=== PATIENT | female | born 1945 | race Caucasian/White ===

== ENCOUNTER 2017-10-30 09:49 | Inpatient (IN) ==
[2017-10-30] MEDS ORDERED: ONDANSETRON 4 MG/2 ML VIAL IV STA (10:39)
[2017-10-30] MEDS ORDERED: PANTOPRAZOLE 40 MG VIAL IV STA (10:39)
[2017-10-30] MEDS ORDERED: SODIUM CHLORIDE 0.9% 1,000 ML IV STA (10:39)
[2017-10-30 10:49] LABS: Basophils % 0.2 % (0.0-0.8); Eosinophils # 0.1 10*3/uL (0.0-0.87); Eosinophils % 0.8 % (0.00-10.9); Hematocrit 29.7 VOL% (35.7-47.0); Hemoglobin 9.4 GM/DL (12.0-16.0); Immature Granulocytes % 0.7 %; Immature Granulocytes Absolute 0.06 #; Lymphocytes # 0.9 10*3/uL (1.4-4.0); Lymphocytes % 10.1 % (21.3-54.2); Mean Corpuscular HGB Conc 31.6 GM/DL (32-36); Mean Corpuscular Hemoglobin 29 PG (27-34); Monocytes # 0.9 10*3/uL (0.11-0.8); Monocytes % 9.6 % (1.7-12.7); Neutrophils # 7.3 10*3/uL (1.4-7.4); Neutrophils % 78.6 % (38.7-73.9); Platelet Count 482 T/CUMM (130-400); White Blood Count 9.2 T/CUMM (4-12)
[2017-10-30 10:53] LABS: PT Patient Result 10.4 SECS
[2017-10-30] MEDS ORDERED: PANTOPRAZOLE 40 MG VIAL IV ONE (10:54)
[2017-10-30] MEDS ORDERED: ONDANSETRON 4 MG/2 ML VIAL ONE (10:54)
[2017-10-30 11:06] LABS: Alanine Aminotransferase 14 U/L (13-56); Albumin 2.3 G/DL (3.4-5.0); Alkaline Phosphatase 106 U/L (45-117); Aspartate Amino Transferase 23 U/L (0-37); Bilirubin,Total < 0.39 MG/DL (0.2-1.0); Blood Urea Nitrogen 12 MG/DL (7-18); Calcium 8.9 MG/DL (8.5-10.1); Glucose 101 MG/DL (74-106); Osmolality,Calculated 274.7 MOS/KG (273-304); Potassium 3.2 MMOL/L (3.5-5.1); Sodium 138 MMOL/L (136-145); Troponin I Only 0.148 NG/ML (0.00-0.045)
[2017-10-30 11:13] LABS: Band Neutrophils 4 % (0-10); Giant Platelets Few; Hypochromasia 1+; Lymphocytes 6 % (20-55); Ovalocytes Slight; Platelet Estimate Adequate; Segmented Neutrophils 85 % (50-85); Total Cells Counted 100
[2017-10-30] MEDS ORDERED: POTASSIUM CHLORIDE 20 MEQ TABLET PO STA (11:41)
[2017-10-30 11:52] LABS: Apearance,Urine CLEAR (Clear); Bilirubin,Urine Negative (Negative); Blood, Urine Small mg/dL (Negative); Glucose,Urine (UA) Negative (Negative); Ketones,Urine Negative (Negative); Nitrite,Urine Negative (Negative); Protein,Urine Negative; RBC,Urine <1 /HPF (0-4); Squamous Epithelial Cell,Urine Occasional /HPF (0-10); Urine Color Straw (Yellow); Urine Specific Gravity 1.002 (1.001-1.035); Urine Urobilinogen < 2.0 EU/DL (0.2-1.0); WBC,Urine <1 /HPF (0-6)
[2017-10-30] MEDS ORDERED: ONDANSETRON 4 MG/2 ML VIAL IV PRN (12:27)
[2017-10-30] MEDS ORDERED: POTASSIUM CHLORIDE 20 MEQ TABLET PO ONE (13:03)
[2017-10-30] MEDS: SODIUM CHLORIDE 0.9% 1,000 ML IV SCH (16:43)
[2017-10-30] MEDS: LEVOFLOXACIN INJ 750 MG in PREMIX 1 EACH IV SCH (16:45)
[2017-10-30 16:51] LABS: Troponin I Only 0.143 NG/ML (0.00-0.045)
[2017-10-30] MEDS ORDERED: POLYETHYLENE GLYCOL POWDER 255 GM BOTTLE PO ONE (19:04)
[2017-10-30] MEDS: HYDROCORTISONE 25 MG SUPP RECTAL SCH (22:15)
[2017-10-31] MEDS: SODIUM CHLORIDE 0.9% 1,000 ML IV SCH ×2 (04:08→15:15)
[2017-10-31] MEDS ORDERED: MAGNESIUM CITRATE 300 ML BOTTLE PO ONE (06:00)
[2017-10-31 08:11] LABS: Basophils % 0.4 % (0.0-0.8); Eosinophils % 0.4 % (0.00-10.9); Hematocrit 30.7 VOL% (35.7-47.0); Hemoglobin 9.5 GM/DL (12.0-16.0); Immature Granulocytes % 0.7 %; Immature Granulocytes Absolute 0.05 #; Lymphocytes # 0.9 10*3/uL (1.4-4.0); Lymphocytes % 11.4 % (21.3-54.2); Mean Corpuscular HGB Conc 30.9 GM/DL (32-36); Mean Corpuscular Hemoglobin 29 PG (27-34); Mean Platelet Volume 9.4 FL (9.6-12.0); Monocytes # 0.9 10*3/uL (0.11-0.8); Monocytes % 12.1 % (1.7-12.7); Neutrophils # 5.6 10*3/uL (1.4-7.4); Platelet Count 516 T/CUMM (130-400); Red Cell Distribution Width 15.3 % (9.3-17.3); White Blood Count 7.4 T/CUMM (4-12)
[2017-10-31 08:31] LABS: PT Patient Result 10.4 SECS
[2017-10-31 08:33] LABS: Band Neutrophils 1 % (0-10); Lymphocytes 12 % (20-55); Segmented Neutrophils 70 % (50-85); Total Cells Counted 100
[2017-10-31 08:34] LABS: Giant Platelets Few; Hypochromasia 1+; Platelet Estimate Increased
[2017-10-31 08:47] LABS: Albumin 2.4 G/DL (3.4-5.0); Bilirubin,Total 0.4 MG/DL (0.2-1.0); Calcium 9.3 MG/DL (8.5-10.1); Osmolality,Calculated 277.4 MOS/KG (273-304); Potassium 4.2 MMOL/L (3.5-5.1); Total Protein 7.5 G/DL (6.4-8.3)
[2017-10-31] MEDS: HYDROCORTISONE 25 MG SUPP RECTAL SCH ×2 (09:31→21:59)
[2017-10-31] MEDS: PANTOPRAZOLE 40 MG VIAL IV SCH (09:32)
[2017-10-31] MEDS ORDERED: PROPOFOL 200 MG/20 ML VIAL IV ONE (12:54)
[2017-10-31] MEDS ORDERED: LIDOCAINE 2% 5 ML VIAL ONE (12:54)
[2017-11-01] MEDS ORDERED: SIMETHICONE DROPS 40 MG/0.6 ML 30 ML BOTTLE PO PRN (01:20)
[2017-11-01] MEDS ORDERED: ASPIRIN CHEW 81 MG TABLET PO ONE (02:10)
[2017-11-01] MEDS ORDERED: ASPIRIN 325 MG TABLET ONE (02:12)
[2017-11-01] MEDS: MORPHINE 2 MG/1 ML SYRINGE IV PRN ×2 (02:15→05:19)
[2017-11-01] MEDS: NITROGLYCERIN SL 0.4 MG TABLET SL PRN ×2 (02:16→02:25)
[2017-11-01 02:36] LABS: PT Patient Result 10.6 SECS
[2017-11-01 02:46] LABS: Basophils % 0.3 % (0.0-0.8); Eosinophils % 0.1 % (0.00-10.9); Hemoglobin 9.1 GM/DL (12.0-16.0); Immature Granulocytes % 0.8 %; Immature Granulocytes Absolute 0.09 #; Lymphocytes # 0.5 10*3/uL (1.4-4.0); Lymphocytes % 4.4 % (21.3-54.2); Mean Corpuscular HGB Conc 32.5 GM/DL (32-36); Mean Corpuscular Hemoglobin 29 PG (27-34); Mean Corpuscular Volume 90.6 FL (87-102); Mean Platelet Volume 9.9 FL (9.6-12.0); Monocytes # 0.8 10*3/uL (0.11-0.8); Monocytes % 7.4 % (1.7-12.7); Neutrophils # 9.5 10*3/uL (1.4-7.4); Platelet Count 494 T/CUMM (130-400); Red Blood Count 3.09 MC/CUMM (3.8-5.5); Red Cell Distribution Width 15.8 % (9.3-17.3); White Blood Count 10.9 T/CUMM (4-12)
[2017-11-01] MEDS ORDERED: HEPARIN/NACL 0.9% 2 UNITS/ML 1,000 ML IV ONE (02:47)
[2017-11-01] MEDS ORDERED: LIDOCAINE 1% 20 ML VIAL ONE (02:47)
[2017-11-01 02:50] LABS: Calcium 7.2 MG/DL (8.5-10.1); Osmolality,Calculated 287.7 MOS/KG (273-304)
[2017-11-01] MEDS ORDERED: MIDAZOLAM 2 MG/2 ML VIAL ONE (02:50)
[2017-11-01] MEDS ORDERED: fentaNYL 100 MCG/2 ML VIAL ONE (02:50)
[2017-11-01 02:54] LABS: Osmolality,Calculated 285.8 MOS/KG (273-304)
[2017-11-01 02:57] LABS: Troponin I Only 0.289 NG/ML (0.00-0.045)
[2017-11-01] MEDS ORDERED: BIVALIRUDIN 250 MG VIAL IV ONE (03:00)
[2017-11-01] MEDS ORDERED: TICAGRELOR 90 MG TABLET ONE (03:38)
[2017-11-01 04:02] LABS: Band Neutrophils 17 % (0-10); Segmented Neutrophils 81 % (50-85); Total Cells Counted 100
[2017-11-01 04:04] LABS: Anisocytosis 1+; Hypochromasia 1+; Platelet Estimate Normal
[2017-11-01] MEDS ORDERED: ACETAMINOPHEN 325 MG TABLET PO PRN (04:30)
[2017-11-01] MEDS ORDERED: POTASSIUM CHLORIDE 20 MEQ TABLET PO ONE ×4 (08:02→12:04)
[2017-11-01] MEDS: FUROSEMIDE 20 MG/2 ML VIAL IV SCH ×2 (08:53→16:22)
[2017-11-01] MEDS: ASPIRIN EC 81 MG TABLET PO SCH (08:54)
[2017-11-01] MEDS: CARVEDILOL 3.125 MG TABLET PO SCH ×2 (08:54→20:17)
[2017-11-01] MEDS: TICAGRELOR 90 MG TABLET PO SCH ×2 (08:54→20:16)
[2017-11-01] MEDS: PANTOPRAZOLE 40 MG VIAL IV SCH (08:55)
[2017-11-01] MEDS: PANTOPRAZOLE 40 MG TABLET PO SCH (08:56)
[2017-11-01] MEDS: POTASSIUM CHLORIDE 20 MEQ TABLET PO SCH ×2 (08:58→20:17)
[2017-11-01] MEDS ORDERED: amLODIPine 10 MG TABLET PO SCH (09:00)
[2017-11-01] MEDS ORDERED: POTASSIUM CHLORIDE 10 MEQ TABLET PO SCH (09:00)
[2017-11-01] MEDS: MAGNESIUM OXIDE 400 MG TABLET PO SCH ×2 (09:05→20:17)
[2017-11-01] MEDS: HYDROCORTISONE 25 MG SUPP RECTAL SCH ×2 (09:45→20:16)
[2017-11-01] MEDS: LEVOFLOXACIN INJ 750 MG in PREMIX 1 EACH IV SCH (16:22)
[2017-11-01] MEDS ORDERED: FLUTICASONE/SALMETEROL 500-50 DISKUS 14 DOSE INH ONE (16:28)
[2017-11-01] MEDS: FLUTICASONE/SALMETEROL 500-50 DISKUS 14 DOSE INH SCH ×2 (17:26→20:16)
[2017-11-01] MEDS: SODIUM CHLORIDE 0.9% 1,000 ML IV SCH (19:46)
[2017-11-01] MEDS ORDERED: ATORVASTATIN 40 MG TABLET PO SCH (21:00)
[2017-11-02] MEDS ORDERED: SODIUM CHLORIDE 0.9% 250 ML IV ONE (00:13)
[2017-11-02 05:48] LABS: Basophils % 0.2 % (0.0-0.8); Hematocrit 26.5 VOL% (35.7-47.0); Hemoglobin 8.7 GM/DL (12.0-16.0); Immature Granulocytes % 0.9 %; Immature Granulocytes Absolute 0.11 #; Lymphocytes # 0.7 10*3/uL (1.4-4.0); Lymphocytes % 5.8 % (21.3-54.2); Mean Corpuscular HGB Conc 32.8 GM/DL (32-36); Mean Corpuscular Hemoglobin 29 PG (27-34); Mean Corpuscular Volume 89.2 FL (87-102); Mean Platelet Volume 9.9 FL (9.6-12.0); Monocytes # 0.9 10*3/uL (0.11-0.8); Monocytes % 6.9 % (1.7-12.7); Neutrophils # 10.7 10*3/uL (1.4-7.4); Neutrophils % 86.2 % (38.7-73.9); Platelet Count 445 T/CUMM (130-400); Red Blood Count 2.97 MC/CUMM (3.8-5.5); Red Cell Distribution Width 15.5 % (9.3-17.3); White Blood Count 12.4 T/CUMM (4-12)
[2017-11-02 06:04] LABS: INR 1.1; PT Patient Result 11.4 SECS
[2017-11-02 06:18] LABS: Band Neutrophils 9 % (0-10); Lymphocytes 13 % (20-55); Platelet Estimate Normal; Segmented Neutrophils 74 % (50-85); Total Cells Counted 100
[2017-11-02 06:27] LABS: Calcium 7.9 MG/DL (8.5-10.1); Potassium 4.1 MMOL/L (3.5-5.1)
[2017-11-02] MEDS: FLUTICASONE/SALMETEROL 500-50 DISKUS 14 DOSE INH SCH ×2 (08:26→21:20)
[2017-11-02] MEDS: FUROSEMIDE 20 MG/2 ML VIAL IV SCH ×2 (08:26→17:14)
[2017-11-02] MEDS: TICAGRELOR 90 MG TABLET PO SCH ×2 (08:27→21:20)
[2017-11-02] MEDS: MAGNESIUM OXIDE 400 MG TABLET PO SCH ×2 (08:27→21:19)
[2017-11-02] MEDS: POTASSIUM CHLORIDE 20 MEQ TABLET PO SCH ×2 (08:27→21:20)
[2017-11-02] MEDS: PANTOPRAZOLE 40 MG VIAL IV SCH (08:27)
[2017-11-02] MEDS: ASPIRIN EC 81 MG TABLET PO SCH (08:27)
[2017-11-02] MEDS: HYDROCORTISONE 25 MG SUPP RECTAL SCH ×2 (08:27→21:20)
[2017-11-02] MEDS: PANTOPRAZOLE 40 MG TABLET PO SCH (08:28)
[2017-11-02] MEDS: ATORVASTATIN 10 MG TABLET PO SCH (21:19)
[2017-11-03 05:11] LABS: Basophils % 0.2 % (0.0-0.8); Eosinophils # 0.1 10*3/uL (0.0-0.87); Eosinophils % 0.8 % (0.00-10.9); Hematocrit 26.5 VOL% (35.7-47.0); Hemoglobin 8.7 GM/DL (12.0-16.0); Immature Granulocytes % 1.1 %; Immature Granulocytes Absolute 0.14 #; Lymphocytes # 0.9 10*3/uL (1.4-4.0); Lymphocytes % 6.7 % (21.3-54.2); Mean Corpuscular HGB Conc 32.8 GM/DL (32-36); Mean Corpuscular Hemoglobin 29 PG (27-34); Mean Platelet Volume 10.2 FL (9.6-12.0); Monocytes % 7.4 % (1.7-12.7); NRBC # 0.05 10*3/uL; Neutrophils % 83.8 % (38.7-73.9); Platelet Count 512 T/CUMM (130-400); Red Blood Count 3.01 MC/CUMM (3.8-5.5); Red Cell Distribution Width 15.8 % (9.3-17.3); White Blood Count 13.1 T/CUMM (4-12)
[2017-11-03 05:37] LABS: Risk Ratio 3.65; VLDL CHOLESTEROL 24.4 MG/DL
[2017-11-03 05:44] LABS: Band Neutrophils 3 % (0-10); Eosinophils 1 % (0-10); Hypochromasia 1+; Lymphocytes 8 % (20-55); Segmented Neutrophils 80 % (50-85); Total Cells Counted 100
[2017-11-03 05:45] LABS: Microcytosis 1+; Platelet Estimate Increased
[2017-11-03 06:43] LABS: Calcium 8.3 MG/DL (8.5-10.1); Osmolality,Calculated 278.5 MOS/KG (273-304); Potassium 4.5 MMOL/L (3.5-5.1)
[2017-11-03] MEDS: POTASSIUM CHLORIDE 20 MEQ TABLET PO SCH ×2 (08:47→20:12)
[2017-11-03] MEDS: FUROSEMIDE 20 MG/2 ML VIAL IV SCH ×2 (08:47→20:11)
[2017-11-03] MEDS: TICAGRELOR 90 MG TABLET PO SCH (08:47)
[2017-11-03] MEDS: MAGNESIUM OXIDE 400 MG TABLET PO SCH ×2 (08:47→20:12)
[2017-11-03] MEDS: ASPIRIN EC 81 MG TABLET PO SCH (08:47)
[2017-11-03] MEDS: PANTOPRAZOLE 40 MG TABLET PO SCH (08:47)
[2017-11-03] MEDS: HYDROCORTISONE 25 MG SUPP RECTAL SCH ×2 (08:47→20:12)
[2017-11-03] MEDS: FLUTICASONE/SALMETEROL 500-50 DISKUS 14 DOSE INH SCH ×2 (08:59→20:12)
[2017-11-03] MEDS ORDERED: DOCUSATE SODIUM 100 MG CAPSULE PO PRN (09:44)
[2017-11-03] MEDS ORDERED: amLODIPine 10 MG TABLET PO SCH ×2 (09:45→15:08)
[2017-11-03] MEDS ORDERED: LEVOTHYROXINE 50 MCG TABLET PO SCH (10:00)
[2017-11-03] MEDS: FERROUS SULFATE 325 MG TABLET PO SCH ×2 (10:07→20:12)
[2017-11-03] MEDS: LEVOFLOXACIN INJ 750 MG in PREMIX 1 EACH IV SCH (11:40)
[2017-11-03] MEDS: VALSARTAN 160 MG TABLET PO SCH (11:50)
[2017-11-03] MEDS ORDERED: SODIUM CHLORIDE 0.9% 1,000 ML IV PRN (14:10)
[2017-11-03] MEDS ORDERED: CLOPIDOGREL 300 MG TABLET PO ONE (14:48)
[2017-11-03] MEDS ORDERED: amLODIPine 5 MG TABLET PO SCH (15:15)
[2017-11-03] MEDS: ATORVASTATIN 10 MG TABLET PO SCH (20:12)
[2017-11-04 04:08] LABS: Basophils % 0.2 % (0.0-0.8); Eosinophils # 0.1 10*3/uL (0.0-0.87); Eosinophils % 1.1 % (0.00-10.9); Hematocrit 35.5 VOL% (35.7-47.0); Hemoglobin 11.7 GM/DL (12.0-16.0); Immature Granulocytes % 0.7 %; Immature Granulocytes Absolute 0.08 #; Lymphocytes # 0.7 10*3/uL (1.4-4.0); Lymphocytes % 6.1 % (21.3-54.2); Mean Corpuscular Hemoglobin 29 PG (27-34); Mean Corpuscular Volume 86.8 FL (87-102); Mean Platelet Volume 10.1 FL (9.6-12.0); Monocytes # 0.7 10*3/uL (0.11-0.8); Monocytes % 6.4 % (1.7-12.7); Neutrophils # 9.2 10*3/uL (1.4-7.4); Neutrophils % 85.5 % (38.7-73.9); Platelet Count 537 T/CUMM (130-400); Red Blood Count 4.09 MC/CUMM (3.8-5.5); Red Cell Distribution Width 16.3 % (9.3-17.3); White Blood Count 10.8 T/CUMM (4-12)
[2017-11-04 04:32] LABS: Calcium 8.1 MG/DL (8.5-10.1); Osmolality,Calculated 277.5 MOS/KG (273-304); Potassium 4.3 MMOL/L (3.5-5.1)
[2017-11-04 04:37] LABS: Band Neutrophils 5 % (0-10); Lymphocytes 11 % (20-55); Platelet Estimate Increased; Segmented Neutrophils 77 % (50-85); Total Cells Counted 100
[2017-11-04] MEDS: ASPIRIN EC 81 MG TABLET PO SCH (08:41)
[2017-11-04] MEDS: VALSARTAN 160 MG TABLET PO SCH (08:41)
[2017-11-04] MEDS: MAGNESIUM OXIDE 400 MG TABLET PO SCH ×2 (08:41→22:20)
[2017-11-04] MEDS: POTASSIUM CHLORIDE 20 MEQ TABLET PO SCH ×2 (08:41→08:45)
[2017-11-04] MEDS: CLOPIDOGREL 75 MG TABLET PO SCH (08:42)
[2017-11-04] MEDS: PANTOPRAZOLE 40 MG TABLET PO SCH (08:42)
[2017-11-04] MEDS: FERROUS SULFATE 325 MG TABLET PO SCH ×2 (08:43→22:20)
[2017-11-04] MEDS: FUROSEMIDE 20 MG/2 ML VIAL IV SCH ×2 (08:44→17:16)
[2017-11-04] MEDS: FLUTICASONE/SALMETEROL 500-50 DISKUS 14 DOSE INH SCH ×2 (08:46→22:20)
[2017-11-04] MEDS: HYDROCORTISONE 25 MG SUPP RECTAL SCH ×2 (08:46→22:20)
[2017-11-04] MEDS ORDERED: VALSARTAN 80 MG TABLET PO SCH ×2 (08:49→14:27)
[2017-11-04] MEDS: LEVOFLOXACIN INJ 750 MG in PREMIX 1 EACH IV SCH (10:13)
[2017-11-04] MEDS: SPIRONOLACTONE 25 MG TABLET PO SCH (10:50)
[2017-11-04] MEDS: ATORVASTATIN 10 MG TABLET PO SCH (22:20)
[2017-11-04] MEDS: CARVEDILOL 3.125 MG TABLET PO SCH (22:20)
[2017-11-05 05:01] LABS: Basophils % 0.1 % (0.0-0.8); Eosinophils # 0.3 10*3/uL (0.0-0.87); Hematocrit 37.4 VOL% (35.7-47.0); Hemoglobin 12.2 GM/DL (12.0-16.0); Immature Granulocytes % 1.2 %; Immature Granulocytes Absolute 0.08 #; Lymphocytes # 0.7 10*3/uL (1.4-4.0); Lymphocytes % 9.6 % (21.3-54.2); Mean Corpuscular HGB Conc 32.6 GM/DL (32-36); Mean Corpuscular Hemoglobin 28 PG (27-34); Mean Corpuscular Volume 86.2 FL (87-102); Mean Platelet Volume 10.1 FL (9.6-12.0); Monocytes # 0.5 10*3/uL (0.11-0.8); Monocytes % 7.9 % (1.7-12.7); Neutrophils # 5.2 10*3/uL (1.4-7.4); Neutrophils % 77.2 % (38.7-73.9); Platelet Count 581 T/CUMM (130-400); Red Blood Count 4.34 MC/CUMM (3.8-5.5); Red Cell Distribution Width 16.9 % (9.3-17.3); White Blood Count 6.7 T/CUMM (4-12)
[2017-11-05 05:33] LABS: Calcium 8.4 MG/DL (8.5-10.1); Calcium 8.5 MG/DL (8.5-10.1); Osmolality,Calculated 274.8 MOS/KG (273-304); Osmolality,Calculated 276.7 MOS/KG (273-304); Potassium 4.5 MMOL/L (3.5-5.1)
[2017-11-05] MEDS: FUROSEMIDE 20 MG/2 ML VIAL IV SCH (09:01)
[2017-11-05] MEDS: PANTOPRAZOLE 40 MG TABLET PO SCH (09:42)
[2017-11-05] MEDS: HYDROCORTISONE 25 MG SUPP RECTAL SCH (09:42)
[2017-11-05] MEDS: POTASSIUM CHLORIDE 20 MEQ TABLET PO SCH (09:42)
[2017-11-05] MEDS: CLOPIDOGREL 75 MG TABLET PO SCH (09:42)
[2017-11-05] MEDS: CARVEDILOL 3.125 MG TABLET PO SCH (09:42)
[2017-11-05] MEDS: FLUTICASONE/SALMETEROL 500-50 DISKUS 14 DOSE INH SCH (09:42)
[2017-11-05] MEDS: SPIRONOLACTONE 25 MG TABLET PO SCH (09:43)
[2017-11-05] MEDS: FERROUS SULFATE 325 MG TABLET PO SCH (09:43)
[2017-11-05] MEDS: MAGNESIUM OXIDE 400 MG TABLET PO SCH (09:43)
[2017-11-05] MEDS: ASPIRIN EC 81 MG TABLET PO SCH (09:43)
[2017-11-05 11:28] VITALS: BP 98/60
[2017-11-05] MEDS ORDERED: TUBERCULIN SKIN TEST 0.1 ML SYRINGE INTRADERM ONE (11:38)
[2017-11-05] MEDS: LEVOFLOXACIN INJ 750 MG in PREMIX 1 EACH IV SCH (11:53)
== END 2017-11-05 13:53 | disposition swing bed (61) | DRG 981 ==
LOC: N.ED 09:49 → N.EDINP 11:49 → N.4E 14:25 → N.CC 11-01 04:29 → N.TELEN 11-02 18:14
PROC: CLCCHCL (ICD-10-PCS; 2017-11-01 03:15)

== ENCOUNTER 2017-11-13 13:26 | Inpatient (IN) ==
[2017-11-13 14:06] LABS: Basophils % 0.6 % (0.0-0.8); Eosinophils # 0.1 10*3/uL (0.0-0.87); Eosinophils % 1.9 % (0.00-10.9); Hematocrit 38.5 VOL% (35.7-47.0); Hemoglobin 12.1 GM/DL (12.0-16.0); Immature Granulocytes % 0.4 %; Immature Granulocytes Absolute 0.03 #; Lymphocytes % 13.9 % (21.3-54.2); Mean Corpuscular HGB Conc 31.4 GM/DL (32-36); Mean Corpuscular Hemoglobin 28 PG (27-34); Mean Corpuscular Volume 89.7 FL (87-102); Monocytes # 0.8 10*3/uL (0.11-0.8); Monocytes % 12.1 % (1.7-12.7); Neutrophils # 4.9 10*3/uL (1.4-7.4); Neutrophils % 71.1 % (38.7-73.9); Platelet Count 513 T/CUMM (130-400); Red Blood Count 4.29 MC/CUMM (3.8-5.5); Red Cell Distribution Width 16.6 % (9.3-17.3); White Blood Count 6.9 T/CUMM (4-12)
[2017-11-13 14:17] LABS: INR 0.9
[2017-11-13 15:06] LABS: Bilirubin,Total 0.4 MG/DL (0.2-1.0); Calcium 9.1 MG/DL (8.5-10.1); Potassium 4.4 MMOL/L (3.5-5.1); Total Protein 7.7 G/DL (6.4-8.3)
[2017-11-13] MEDS ORDERED: ONDANSETRON 4 MG/2 ML VIAL IV PRN (15:17)
[2017-11-13] MEDS ORDERED: ACETAMINOPHEN 325 MG TABLET PO PRN (15:17)
[2017-11-13 17:42] LABS: Hemoglobin 11.1 GM/DL (12.0-16.0)
[2017-11-13] MEDS: SODIUM CHLORIDE 0.9% 1,000 ML IV SCH (19:05)
[2017-11-14] MEDS: SODIUM CHLORIDE 0.9% 1,000 ML IV SCH ×2 (00:54→16:22)
[2017-11-14 01:16] LABS: Basophils % 0.5 % (0.0-0.8); Eosinophils # 0.2 10*3/uL (0.0-0.87); Eosinophils % 3.7 % (0.00-10.9); Hematocrit 31.2 VOL% (35.7-47.0); Hemoglobin 10.1 GM/DL (12.0-16.0); Immature Granulocytes % 0.5 %; Immature Granulocytes Absolute 0.03 #; Lymphocytes % 17.4 % (21.3-54.2); Mean Corpuscular HGB Conc 32.6 GM/DL (32-36); Mean Corpuscular Hemoglobin 29 PG (27-34); Mean Corpuscular Volume 87.8 FL (87-102); Monocytes # 0.8 10*3/uL (0.11-0.8); Monocytes % 15.2 % (1.7-12.7); Neutrophils # 3.4 10*3/uL (1.4-7.4); Neutrophils % 62.7 % (38.7-73.9); Platelet Count 462 T/CUMM (130-400); Red Blood Count 3.53 MC/CUMM (3.8-5.5); Red Cell Distribution Width 16.4 % (9.3-17.3); White Blood Count 5.5 T/CUMM (4-12)
[2017-11-14 01:41] LABS: Band Neutrophils 7 % (0-10); Eosinophils 4 % (0-10); Lymphocytes 22 % (20-55); Segmented Neutrophils 63 % (50-85); Total Cells Counted 100
[2017-11-14 01:42] LABS: Platelet Estimate Increased
[2017-11-14 01:43] LABS: Calcium 8.1 MG/DL (8.5-10.1); Osmolality,Calculated 279.3 MOS/KG (273-304); Potassium 4.1 MMOL/L (3.5-5.1)
[2017-11-14] MEDS ORDERED: PANTOPRAZOLE 40 MG VIAL IV SCH (09:00)
[2017-11-14 16:14] LABS: Hematocrit 31.9 VOL% (35.7-47.0); Hemoglobin 10.2 GM/DL (12.0-16.0)
[2017-11-14] MEDS: CARVEDILOL 3.125 MG TABLET PO SCH (16:20)
[2017-11-14] MEDS: ATORVASTATIN 10 MG TABLET PO SCH (21:39)
[2017-11-15 05:16] LABS: Basophils % 0.5 % (0.0-0.8); Eosinophils # 0.2 10*3/uL (0.0-0.87); Eosinophils % 2.6 % (0.00-10.9); Hematocrit 32.5 VOL% (35.7-47.0); Hemoglobin 10.1 GM/DL (12.0-16.0); Immature Granulocytes % 0.5 %; Immature Granulocytes Absolute 0.04 #; Lymphocytes # 0.8 10*3/uL (1.4-4.0); Lymphocytes % 10.6 % (21.3-54.2); Mean Corpuscular HGB Conc 31.1 GM/DL (32-36); Mean Corpuscular Hemoglobin 29 PG (27-34); Mean Corpuscular Volume 92.1 FL (87-102); Monocytes # 0.8 10*3/uL (0.11-0.8); Monocytes % 10.4 % (1.7-12.7); Neutrophils # 5.5 10*3/uL (1.4-7.4); Neutrophils % 75.4 % (38.7-73.9); Platelet Count 474 T/CUMM (130-400); Red Blood Count 3.53 MC/CUMM (3.8-5.5); Red Cell Distribution Width 16.9 % (9.3-17.3); White Blood Count 7.3 T/CUMM (4-12)
[2017-11-15 05:35] LABS: Osmolality,Calculated 281.1 MOS/KG (273-304); Potassium 4.2 MMOL/L (3.5-5.1)
[2017-11-15] MEDS: SODIUM CHLORIDE 0.9% 1,000 ML IV SCH ×4 (05:49→23:57)
[2017-11-15 05:52] LABS: Giant Platelets Few; Hypochromasia 1+; Ovalocytes Slight; Platelet Estimate Adequate
[2017-11-15] MEDS ORDERED: ALBUTEROL/IPRATROPIUM 3 ML NEB RESP TX PRN (08:28)
[2017-11-15] MEDS ORDERED: ALBUTEROL/IPRATROPIUM 3 ML NEB RESP TX ONE (08:28)
[2017-11-15] MEDS: PANTOPRAZOLE 40 MG TABLET PO SCH (09:20)
[2017-11-15] MEDS: CARVEDILOL 3.125 MG TABLET PO SCH ×2 (09:20→16:37)
[2017-11-15] MEDS: LEVOTHYROXINE 50 MCG TABLET PO SCH (09:20)
[2017-11-15] MEDS: FLUTICASONE/SALMETEROL 500-50 DISKUS 14 DOSE INH SCH (12:19)
[2017-11-15] MEDS: ASPIRIN CHEW 81 MG TABLET PO SCH (13:45)
[2017-11-15 16:04] LABS: Hematocrit 36.3 VOL% (35.7-47.0)
[2017-11-15] MEDS: ATORVASTATIN 10 MG TABLET PO SCH (20:45)
[2017-11-16] MEDS ORDERED: FUROSEMIDE 40 MG/4 ML VIAL IV ONE (04:32)
[2017-11-16 04:54] LABS: Basophils % 0.4 % (0.0-0.8); Eosinophils # 0.2 10*3/uL (0.0-0.87); Eosinophils % 2.3 % (0.00-10.9); Hematocrit 33.8 VOL% (35.7-47.0); Hemoglobin 10.3 GM/DL (12.0-16.0); Immature Granulocytes % 0.6 %; Immature Granulocytes Absolute 0.05 #; Lymphocytes # 0.8 10*3/uL (1.4-4.0); Lymphocytes % 9.5 % (21.3-54.2); Mean Corpuscular HGB Conc 30.5 GM/DL (32-36); Mean Corpuscular Hemoglobin 29 PG (27-34); Mean Corpuscular Volume 93.4 FL (87-102); Mean Platelet Volume 9.6 FL (9.6-12.0); Monocytes # 0.7 10*3/uL (0.11-0.8); Monocytes % 8.9 % (1.7-12.7); Neutrophils # 6.5 10*3/uL (1.4-7.4); Neutrophils % 78.3 % (38.7-73.9); Platelet Count 445 T/CUMM (130-400); Red Blood Count 3.62 MC/CUMM (3.8-5.5); Red Cell Distribution Width 17.1 % (9.3-17.3); White Blood Count 8.3 T/CUMM (4-12)
[2017-11-16 05:19] LABS: Calcium 8.5 MG/DL (8.5-10.1); Potassium 4.2 MMOL/L (3.5-5.1)
[2017-11-16 05:26] LABS: Band Neutrophils 9 % (0-10); Eosinophils 4 % (0-10); Giant Platelets Few; Hypochromasia 1+; Lymphocytes 12 % (20-55); Platelet Estimate Adequate; Segmented Neutrophils 68 % (50-85); Total Cells Counted 100
[2017-11-16] MEDS: LEVOTHYROXINE 50 MCG TABLET PO SCH (06:28)
[2017-11-16] MEDS: ASPIRIN CHEW 81 MG TABLET PO SCH (08:16)
[2017-11-16] MEDS: FLUTICASONE/SALMETEROL 500-50 DISKUS 14 DOSE INH SCH (08:16)
[2017-11-16] MEDS: CARVEDILOL 3.125 MG TABLET PO SCH ×2 (08:16→16:11)
[2017-11-16] MEDS: PANTOPRAZOLE 40 MG TABLET PO SCH (08:16)
[2017-11-16] MEDS: SODIUM CHLORIDE 0.9% 1,000 ML IV SCH (08:16)
[2017-11-16] MEDS: FUROSEMIDE 40 MG/4 ML VIAL IV SCH (19:50)
[2017-11-16] MEDS: ATORVASTATIN 10 MG TABLET PO SCH (20:18)
[2017-11-17 05:13] LABS: Basophils % 0.5 % (0.0-0.8); Eosinophils # 0.3 10*3/uL (0.0-0.87); Eosinophils % 5.6 % (0.00-10.9); Hematocrit 31.5 VOL% (35.7-47.0); Immature Granulocytes % 0.7 %; Immature Granulocytes Absolute 0.04 #; Lymphocytes # 1.1 10*3/uL (1.4-4.0); Lymphocytes % 18.4 % (21.3-54.2); Mean Corpuscular HGB Conc 31.7 GM/DL (32-36); Mean Corpuscular Hemoglobin 29 PG (27-34); Monocytes # 0.6 10*3/uL (0.11-0.8); Neutrophils # 3.8 10*3/uL (1.4-7.4); Neutrophils % 64.8 % (38.7-73.9); Platelet Count 441 T/CUMM (130-400); Red Cell Distribution Width 16.7 % (9.3-17.3); White Blood Count 5.9 T/CUMM (4-12)
[2017-11-17 05:50] LABS: Calcium 8.2 MG/DL (8.5-10.1); Osmolality,Calculated 278.3 MOS/KG (273-304); Potassium 3.5 MMOL/L (3.5-5.1)
[2017-11-17 05:57] LABS: Band Neutrophils 2 % (0-10); Eosinophils 5 % (0-10); Lymphocytes 12 % (20-55); Segmented Neutrophils 74 % (50-85); Total Cells Counted 100
[2017-11-17 05:58] LABS: Hypochromasia 1+; Microcytosis 1+
[2017-11-17] MEDS: LEVOTHYROXINE 50 MCG TABLET PO SCH (06:46)
[2017-11-17 08:06] VITALS: BP 108/66
[2017-11-17] MEDS: PANTOPRAZOLE 40 MG TABLET PO SCH (08:39)
[2017-11-17] MEDS: ASPIRIN CHEW 81 MG TABLET PO SCH (08:39)
[2017-11-17] MEDS: CARVEDILOL 3.125 MG TABLET PO SCH (08:39)
[2017-11-17] MEDS: FLUTICASONE/SALMETEROL 500-50 DISKUS 14 DOSE INH SCH (08:40)
[2017-11-17] MEDS: FUROSEMIDE 40 MG/4 ML VIAL IV SCH (08:40)
[2017-11-17] MEDS ORDERED: CLOPIDOGREL 75 MG TABLET PO SCH (09:00)
[2017-11-17] MEDS ORDERED: BACITRACIN OINT 0.9 GM PACK TOP SCH (11:00)
== END 2017-11-17 12:37 | disposition home or self-care (01) | DRG 377 ==
LOC: EDUNIT# → N.ED 13:26 → SUATTDRO 14:32 → N.EDINP 15:14 → N.2E 16:08
PROVIDERS: ADMIT Internal Medicine; ATTEND Internal Medicine

== ENCOUNTER 2018-11-22 13:47 | Inpatient (IN) ==
[2018-11-22] MEDS ORDERED: FUROSEMIDE 100 MG/10 ML VIAL IV STA (14:11)
[2018-11-22 14:25] LABS: Basophils # 0.1 10*3/uL (0.0-0.2); Basophils % 0.6 % (0.0-0.8); Eosinophils # 0.2 10*3/uL (0.0-0.87); Eosinophils % 2.9 % (0.00-10.9); Hematocrit 36.2 VOL% (35.7-47.0); Hemoglobin 10.9 GM/DL (12.0-16.0); Immature Granulocytes % 0.4 %; Immature Granulocytes Absolute 0.03 #; Lymphocytes # 0.9 10*3/uL (1.4-4.0); Lymphocytes % 11.1 % (21.3-54.2); Mean Corpuscular HGB Conc 30.1 GM/DL (32-36); Mean Corpuscular Hemoglobin 29 PG (27-34); Mean Corpuscular Volume 97.3 FL (87-102); Mean Platelet Volume 10.9 FL (9.6-12.0); Monocytes # 0.5 10*3/uL (0.11-0.8); Monocytes % 6.4 % (1.7-12.7); Neutrophils # 6.5 10*3/uL (1.4-7.4); Neutrophils % 78.6 % (38.7-73.9); Platelet Count 343 T/CUMM (130-400); Red Blood Count 3.72 MC/CUMM (3.8-5.5); Red Cell Distribution Width 15.4 % (9.3-17.3); White Blood Count 8.2 T/CUMM (4-12)
[2018-11-22 14:36] LABS: Calcium 8.9 MG/DL (8.5-10.1); Osmolality,Calculated 276.1 MOS/KG (273-304); Potassium 4.2 MMOL/L (3.5-5.1)
[2018-11-22] MEDS ORDERED: DOCUSATE SODIUM 100 MG CAPSULE PO PRN (15:42)
[2018-11-22] MEDS ORDERED: ACETAMINOPHEN 325 MG TABLET PO PRN (15:42)
[2018-11-22] MEDS ORDERED: ONDANSETRON 4 MG/2 ML VIAL IV PRN (15:42)
[2018-11-22 16:13] LABS: Risk Ratio 4.85; Thyroid Stimulating Hormone 1.49 uIU/ml (0.358-3.74); VLDL CHOLESTEROL 23.6 MG/DL
[2018-11-22] MEDS: ENOXAPARIN 40 MG/0.4 ML SYRINGE SUBCUT SCH (16:43)
[2018-11-22 17:47] LABS: Apearance,Urine CLEAR (Clear); Bilirubin,Urine Negative (Negative); Blood, Urine Negative (Negative); Glucose,Urine (UA) Negative (Negative); Ketones,Urine Negative (Negative); Mucus,Urine Occasional /LPF (Occasional); Nitrite,Urine Negative (Negative); Protein,Urine Negative; RBC,Urine <1 /HPF (0-4); Squamous Epithelial Cell,Urine Occasional /HPF (0-10); Urine Color Straw (Yellow); Urine Specific Gravity 1.004 (1.001-1.035); Urine Urobilinogen < 2.0 EU/DL (0.2-1.0); WBC,Urine 1 /HPF (0-6)
[2018-11-23 04:41] LABS: Basophils % 0.6 % (0.0-0.8); Eosinophils # 0.2 10*3/uL (0.0-0.87); Eosinophils % 4.6 % (0.00-10.9); Hematocrit 34.9 VOL% (35.7-47.0); Hemoglobin 10.4 GM/DL (12.0-16.0); Immature Granulocytes % 0.2 %; Immature Granulocytes Absolute 0.01 #; Lymphocytes # 0.8 10*3/uL (1.4-4.0); Lymphocytes % 15.7 % (21.3-54.2); Mean Corpuscular HGB Conc 29.8 GM/DL (32-36); Mean Corpuscular Hemoglobin 29 PG (27-34); Mean Corpuscular Volume 97.8 FL (87-102); Mean Platelet Volume 10.5 FL (9.6-12.0); Monocytes # 0.5 10*3/uL (0.11-0.8); Monocytes % 9.2 % (1.7-12.7); Neutrophils # 3.5 10*3/uL (1.4-7.4); Neutrophils % 69.7 % (38.7-73.9); Platelet Count 300 T/CUMM (130-400); Red Blood Count 3.57 MC/CUMM (3.8-5.5); Red Cell Distribution Width 15.2 % (9.3-17.3)
[2018-11-23 05:11] LABS: Alanine Aminotransferase < 9 U/L (13-56); Albumin 2.5 G/DL (3.4-5.0); Alkaline Phosphatase 78 U/L (45-117); Aspartate Amino Transferase 16 U/L (0-37); Bilirubin,Total < 0.39 MG/DL (0.2-1.0); Blood Urea Nitrogen 24 MG/DL (7-18); Calcium 8.8 MG/DL (8.5-10.1); Glucose 82 MG/DL (74-106); Osmolality,Calculated 279.5 MOS/KG (273-304); Potassium 4.2 MMOL/L (3.5-5.1); Sodium 139 MMOL/L (136-145); Total Protein 7.8 G/DL (6.4-8.3)
[2018-11-23] MEDS ORDERED: NITROGLYCERIN SL 0.4 MG TABLET SL PRN (08:30)
[2018-11-23] MEDS ORDERED: Aspirin/Sod Bicarb/Citric Acid [Alka-Seltzer Original Tab Eff] 1 PO PRN (08:30)
[2018-11-23] MEDS ORDERED: POLYVINYL ALCOHOL 1.4% OPH SOLN 15 ML BOTTLE BOTH EYES PRN (08:30)
[2018-11-23] MEDS: FLUTICASONE/SALMETEROL 500-50 DISKUS 14 DOSE INH SCH ×3 (09:24→20:51)
[2018-11-23] MEDS: CARVEDILOL 3.125 MG TABLET PO SCH ×2 (09:27→20:51)
[2018-11-23] MEDS: PANTOPRAZOLE 40 MG TABLET PO SCH (09:27)
[2018-11-23] MEDS: MONTELUKAST 10 MG TABLET PO SCH (09:27)
[2018-11-23] MEDS: POTASSIUM CHLORIDE 10 MEQ TABLET PO SCH (09:27)
[2018-11-23] MEDS: ASPIRIN CHEW 81 MG TABLET PO SCH (09:27)
[2018-11-23] MEDS: OMEGA 3 ACID ETHYL ESTERS 1 GM CAPSULE PO SCH ×2 (09:27→20:52)
[2018-11-23] MEDS: LEVOTHYROXINE 50 MCG TABLET PO SCH (09:29)
[2018-11-23] MEDS: ENOXAPARIN 40 MG/0.4 ML SYRINGE SUBCUT SCH (16:08)
[2018-11-23] MEDS: FUROSEMIDE 40 MG/4 ML VIAL IV SCH (16:08)
[2018-11-24 05:06] LABS: Basophils % 0.7 % (0.0-0.8); Eosinophils # 0.2 10*3/uL (0.0-0.87); Eosinophils % 3.5 % (0.00-10.9); Hematocrit 33.5 VOL% (35.7-47.0); Immature Granulocytes % 0.2 %; Immature Granulocytes Absolute 0.01 #; Lymphocytes # 0.8 10*3/uL (1.4-4.0); Lymphocytes % 14.9 % (21.3-54.2); Mean Corpuscular HGB Conc 29.9 GM/DL (32-36); Mean Corpuscular Hemoglobin 29 PG (27-34); Mean Corpuscular Volume 98.2 FL (87-102); Mean Platelet Volume 11.2 FL (9.6-12.0); Monocytes # 0.4 10*3/uL (0.11-0.8); Monocytes % 7.7 % (1.7-12.7); Platelet Count 312 T/CUMM (130-400); Red Blood Count 3.41 MC/CUMM (3.8-5.5); Red Cell Distribution Width 15.2 % (9.3-17.3); White Blood Count 5.4 T/CUMM (4-12)
[2018-11-24 05:33] LABS: Alanine Aminotransferase < 9 U/L (13-56); Albumin 2.6 G/DL (3.4-5.0); Alkaline Phosphatase 79 U/L (45-117); Aspartate Amino Transferase 16 U/L (0-37); Blood Urea Nitrogen 29 MG/DL (7-18); Calcium 8.9 MG/DL (8.5-10.1); Glucose 91 MG/DL (74-106); Osmolality,Calculated 280.7 MOS/KG (273-304); Potassium 3.8 MMOL/L (3.5-5.1); Sodium 138 MMOL/L (136-145)
[2018-11-24] MEDS: LEVOTHYROXINE 50 MCG TABLET PO SCH (06:04)
[2018-11-24 08:28] VITALS: BP 82/57
[2018-11-24] MEDS ORDERED: metOLazone 5 MG TABLET PO PRN (08:43)
[2018-11-24] MEDS: FLUTICASONE/SALMETEROL 500-50 DISKUS 14 DOSE INH SCH (09:10)
[2018-11-24] MEDS: ASPIRIN CHEW 81 MG TABLET PO SCH (09:11)
[2018-11-24] MEDS: POTASSIUM CHLORIDE 10 MEQ TABLET PO SCH (09:12)
[2018-11-24] MEDS: OMEGA 3 ACID ETHYL ESTERS 1 GM CAPSULE PO SCH (09:12)
[2018-11-24] MEDS: PANTOPRAZOLE 40 MG TABLET PO SCH (09:13)
[2018-11-24] MEDS: MONTELUKAST 10 MG TABLET PO SCH (09:13)
[2018-11-24] MEDS: CARVEDILOL 3.125 MG TABLET PO SCH (09:15)
[2018-11-24] MEDS: FUROSEMIDE 40 MG/4 ML VIAL IV SCH (09:38)
[2018-11-24] MEDS ORDERED: FUROSEMIDE 40 MG TABLET PO SCH (16:00)
== END 2018-11-24 10:36 | disposition home or self-care (01) | DRG 291 ==
LOC: N.ED 13:47 → SUATTDRO 15:42 → N.EDINP 15:42 → N.5E 19:38
PROVIDERS: ADMIT Internal Medicine Cardiovascular Disease; ATTEND Internal Medicine

== ENCOUNTER 2019-02-01 17:49 | Inpatient (IN) ==
[2019-02-01 18:26] LABS: Basophils % 0.2 % (0.0-0.8); Eosinophils # 0.1 10*3/uL (0.0-0.87); Eosinophils % 0.6 % (0.00-10.9); Hematocrit 35.9 VOL% (35.7-47.0); Hemoglobin 10.9 GM/DL (12.0-16.0); Immature Granulocytes % 0.7 %; Immature Granulocytes Absolute 0.09 #; Lymphocytes # 0.5 10*3/uL (1.4-4.0); Lymphocytes % 3.4 % (21.3-54.2); Mean Corpuscular HGB Conc 30.4 GM/DL (32-36); Mean Platelet Volume 10.1 FL (9.6-12.0); Monocytes % 4.2 % (1.7-12.7); Neutrophils % 90.9 % (38.7-73.9); Platelet Count 426 T/CUMM (130-400); Red Blood Count 3.78 MC/CUMM (3.8-5.5); Red Cell Distribution Width 15.3 % (9.3-17.3); White Blood Count 13.2 T/CUMM (4-12)
[2019-02-01] MEDS ORDERED: METOCLOPRAMIDE 10 MG/2 ML VIAL IV STA (18:46)
[2019-02-01] MEDS ORDERED: FAMOTIDINE 20 MG/2 ML VIAL IV STA (18:46)
[2019-02-01] MEDS ORDERED: DICYCLOMINE 20 MG/2 ML AMP IM ONE (18:46)
[2019-02-01 18:47] LABS: Albumin 2.2 G/DL (3.4-5.0); Bilirubin,Total 0.4 MG/DL (0.2-1.0); Calcium 9.6 MG/DL (8.5-10.1); Osmolality,Calculated 265.7 MOS/KG (273-304)
[2019-02-01 18:53] LABS: Lymphocytes 3 % (20-55); Segmented Neutrophils 93 % (50-85); Total Cells Counted 100
[2019-02-01 18:54] LABS: Hypochromasia Slight; Ovalocytes Slight; Platelet Estimate Normal
[2019-02-01 18:56] LABS: Apearance,Urine Slightly Hazy (Clear); Bacteria,Urine Many /HPF (Few); Bilirubin,Urine Negative (Negative); Blood, Urine Small mg/dL (Negative); Glucose,Urine (UA) Negative (Negative); Hyaline Casts,Urine 32 /LPF (0-3); Ketones,Urine Negative (Negative); Mucus,Urine Occasional /LPF (Occasional); Nitrite,Urine Negative (Negative); Protein,Urine Negative; RBC,Urine 2 /HPF (0-4); Squamous Epithelial Cell,Urine Occasional /HPF (0-10); Urine Color Yellow (Yellow); Urine Specific Gravity 1.012 (1.001-1.035); Urine Urobilinogen < 2.0 EU/DL (0.2-1.0); WBC,Urine 20 /HPF (0-6)
[2019-02-01 19:22] LABS: Troponin I < 0.015 NG/ML (0.00-0.045)
[2019-02-01] MEDS ORDERED: LEVOFLOXACIN INJ 750 MG in PREMIX 1 EACH IV STA (19:26)
[2019-02-01] MEDS ORDERED: metroNIDAZOLE INJ 500 MG in PREMIX 1 EACH IV STA (21:36)
[2019-02-01] MEDS ORDERED: SODIUM CHLORIDE 0.9% 1,000 ML IV STA (21:37)
[2019-02-01] MEDS ORDERED: POLYVINYL ALCOHOL 1.4% OPH SOLN 15 ML BOTTLE BOTH EYES PRN (23:13)
[2019-02-02] MEDS: LEVOTHYROXINE 50 MCG TABLET PO SCH (06:22)
[2019-02-02 07:10] LABS: Basophils % 0.2 % (0.0-0.8); Eosinophils # 0.1 10*3/uL (0.0-0.87); Eosinophils % 0.4 % (0.00-10.9); Hematocrit 35.2 VOL% (35.7-47.0); Hemoglobin 10.5 GM/DL (12.0-16.0); Immature Granulocytes % 0.7 %; Immature Granulocytes Absolute 0.08 #; Lymphocytes # 0.3 10*3/uL (1.4-4.0); Lymphocytes % 2.5 % (21.3-54.2); Mean Corpuscular HGB Conc 29.8 GM/DL (32-36); Mean Corpuscular Volume 96.4 FL (87-102); Monocytes % 4.8 % (1.7-12.7); Neutrophils % 91.4 % (38.7-73.9); Platelet Count 409 T/CUMM (130-400); Red Blood Count 3.65 MC/CUMM (3.8-5.5); Red Cell Distribution Width 15.8 % (9.3-17.3); White Blood Count 12.2 T/CUMM (4-12)
[2019-02-02 07:28] LABS: Band Neutrophils 4 % (0-10); Hypochromasia 1+; Lymphocytes 2 % (20-55); Platelet Estimate Adequate; Segmented Neutrophils 91 % (50-85); Total Cells Counted 100
[2019-02-02 07:43] LABS: Alanine Aminotransferase < 9 U/L (13-56); Albumin 2.1 G/DL (3.4-5.0); Alkaline Phosphatase 95 U/L (45-117); Aspartate Amino Transferase 17 U/L (0-37); Blood Urea Nitrogen 19 MG/DL (7-18); Calcium 9.1 MG/DL (8.5-10.1); Glucose 88 MG/DL (74-106); Total Protein 8.3 G/DL (6.4-8.3)
[2019-02-02] MEDS: metroNIDAZOLE INJ 500 MG in PREMIX 1 EACH IV SCH ×3 (08:48→20:31)
[2019-02-02] MEDS: MONTELUKAST 10 MG TABLET PO SCH (08:48)
[2019-02-02] MEDS: DICYCLOMINE 10 MG CAPSULE PO SCH ×3 (08:48→21:32)
[2019-02-02] MEDS: FUROSEMIDE 40 MG TABLET PO SCH ×2 (08:48→14:59)
[2019-02-02] MEDS: POTASSIUM CHLORIDE 10 MEQ TABLET PO SCH (08:48)
[2019-02-02] MEDS: OMEGA 3 ACID ETHYL ESTERS 1 GM CAPSULE PO SCH ×2 (08:48→21:32)
[2019-02-02] MEDS: FLUTICASONE/SALMETEROL 500-50 DISKUS 14 DOSE INH SCH (08:49)
[2019-02-02] MEDS: LEVOFLOXACIN INJ 500 MG in PREMIX 1 EACH IV SCH (21:32)
[2019-02-03] MEDS: ACETAMINOPHEN 325 MG TABLET PO PRN (00:53)
[2019-02-03] MEDS: metroNIDAZOLE INJ 500 MG in PREMIX 1 EACH IV SCH ×4 (02:55→20:15)
[2019-02-03 05:21] LABS: Basophils % 0.2 % (0.0-0.8); Eosinophils # 0.1 10*3/uL (0.0-0.87); Eosinophils % 0.6 % (0.00-10.9); Hematocrit 32.6 VOL% (35.7-47.0); Immature Granulocytes % 0.8 %; Immature Granulocytes Absolute 0.08 #; Lymphocytes # 0.4 10*3/uL (1.4-4.0); Lymphocytes % 4.1 % (21.3-54.2); Mean Corpuscular HGB Conc 30.7 GM/DL (32-36); Mean Corpuscular Volume 95.9 FL (87-102); Mean Platelet Volume 10.4 FL (9.6-12.0); Monocytes % 5.8 % (1.7-12.7); Neutrophils % 88.5 % (38.7-73.9); Platelet Count 391 T/CUMM (130-400); Red Cell Distribution Width 15.5 % (9.3-17.3); White Blood Count 10.1 T/CUMM (4-12)
[2019-02-03 05:48] LABS: Calcium 8.4 MG/DL (8.5-10.1); Osmolality,Calculated 277.4 MOS/KG (273-304)
[2019-02-03 05:57] LABS: Hypochromasia Slight; Lymphocytes 5 % (20-55); Platelet Estimate Normal; Polychromasia Few; Segmented Neutrophils 91 % (50-85); Total Cells Counted 100
[2019-02-03] MEDS: LEVOTHYROXINE 50 MCG TABLET PO SCH (06:29)
[2019-02-03] MEDS: MONTELUKAST 10 MG TABLET PO SCH (09:18)
[2019-02-03] MEDS: OMEGA 3 ACID ETHYL ESTERS 1 GM CAPSULE PO SCH ×2 (09:18→21:59)
[2019-02-03] MEDS: POTASSIUM CHLORIDE 10 MEQ TABLET PO SCH (09:18)
[2019-02-03] MEDS: FUROSEMIDE 40 MG TABLET PO SCH ×2 (09:18→15:33)
[2019-02-03] MEDS: DICYCLOMINE 10 MG CAPSULE PO SCH ×3 (09:18→21:59)
[2019-02-03] MEDS: FLUTICASONE/SALMETEROL 500-50 DISKUS 14 DOSE INH SCH (09:19)
[2019-02-03] MEDS ORDERED: MAGNESIUM SULF RIDER 2 GM in PREMIX 1 EACH IV PRN (10:48)
[2019-02-03] MEDS ORDERED: MAGNESIUM SULF RIDER 4 GM in PREMIX 1 EACH IV PRN (10:48)
[2019-02-03] MEDS ORDERED: POTASSIUM CHLORIDE 20 MEQ TABLET PO PRN (10:49)
[2019-02-03] MEDS: ASPIRIN CHEW 81 MG TABLET PO SCH (11:08)
[2019-02-03] MEDS: LEVOFLOXACIN INJ 500 MG in PREMIX 1 EACH IV SCH (23:35)
[2019-02-04] MEDS: metroNIDAZOLE INJ 500 MG in PREMIX 1 EACH IV SCH ×4 (02:06→22:11)
[2019-02-04] MEDS: LEVOTHYROXINE 50 MCG TABLET PO SCH (05:16)
[2019-02-04] MEDS ORDERED: POTASSIUM CHLORIDE 20 MEQ TABLET PO ONE (08:27)
[2019-02-04] MEDS: OMEGA 3 ACID ETHYL ESTERS 1 GM CAPSULE PO SCH ×2 (09:54→21:32)
[2019-02-04] MEDS: ASPIRIN CHEW 81 MG TABLET PO SCH (09:54)
[2019-02-04] MEDS: DICYCLOMINE 10 MG CAPSULE PO SCH ×3 (09:54→21:32)
[2019-02-04] MEDS: MONTELUKAST 10 MG TABLET PO SCH (09:54)
[2019-02-04] MEDS: FUROSEMIDE 40 MG TABLET PO SCH ×2 (09:55→15:39)
[2019-02-04] MEDS: FLUTICASONE/SALMETEROL 500-50 DISKUS 14 DOSE INH SCH (09:56)
[2019-02-04 13:08] LABS: Calcium 8.9 MG/DL (8.5-10.1)
[2019-02-04] MEDS: MAGNESIUM CHLORIDE 64 MG TABLET PO SCH (21:32)
[2019-02-04] MEDS: LEVOFLOXACIN INJ 500 MG in PREMIX 1 EACH IV SCH (23:19)
[2019-02-05] MEDS: ONDANSETRON 4 MG/2 ML VIAL IV PRN ×2 (03:55→14:35)
[2019-02-05] MEDS: metroNIDAZOLE INJ 500 MG in PREMIX 1 EACH IV SCH ×4 (04:57→22:31)
[2019-02-05] MEDS: LEVOTHYROXINE 50 MCG TABLET PO SCH (06:28)
[2019-02-05] MEDS: FUROSEMIDE 40 MG TABLET PO SCH ×2 (08:55→15:58)
[2019-02-05] MEDS: MAGNESIUM CHLORIDE 64 MG TABLET PO SCH ×2 (08:56→20:48)
[2019-02-05] MEDS: ASPIRIN CHEW 81 MG TABLET PO SCH (08:56)
[2019-02-05] MEDS: OMEGA 3 ACID ETHYL ESTERS 1 GM CAPSULE PO SCH ×2 (08:56→20:48)
[2019-02-05] MEDS: DICYCLOMINE 10 MG CAPSULE PO SCH ×3 (08:56→20:48)
[2019-02-05] MEDS: MONTELUKAST 10 MG TABLET PO SCH (08:56)
[2019-02-05] MEDS: FLUTICASONE/SALMETEROL 500-50 DISKUS 14 DOSE INH SCH (09:04)
[2019-02-05] MEDS ORDERED: DIAZEPAM 5 MG TABLET PO ONE (09:38)
[2019-02-05] MEDS: ACETAMINOPHEN 325 MG TABLET PO PRN (12:40)
[2019-02-05] MEDS: ALBUTEROL/IPRATROPIUM 3 ML NEB RESP TX SCH ×2 (13:21→19:42)
[2019-02-05] MEDS: LEVOFLOXACIN INJ 500 MG in PREMIX 1 EACH IV SCH (23:34)
[2019-02-06] MEDS: ALBUTEROL/IPRATROPIUM 3 ML NEB RESP TX SCH ×4 (00:19→19:54)
[2019-02-06] MEDS: metroNIDAZOLE INJ 500 MG in PREMIX 1 EACH IV SCH ×4 (03:34→22:36)
[2019-02-06] MEDS: LEVOTHYROXINE 50 MCG TABLET PO SCH (05:43)
[2019-02-06 05:58] LABS: Basophils % 0.2 % (0.0-0.8); Eosinophils # 0.1 10*3/uL (0.0-0.87); Eosinophils % 1.1 % (0.00-10.9); Hematocrit 34.3 VOL% (35.7-47.0); Hemoglobin 10.2 GM/DL (12.0-16.0); Immature Granulocytes % 0.7 %; Immature Granulocytes Absolute 0.06 #; Lymphocytes # 0.4 10*3/uL (1.4-4.0); Mean Corpuscular HGB Conc 29.7 GM/DL (32-36); Mean Corpuscular Volume 95.5 FL (87-102); Mean Platelet Volume 9.8 FL (9.6-12.0); Monocytes % 4.9 % (1.7-12.7); Neutrophils % 89.1 % (38.7-73.9); Platelet Count 401 T/CUMM (130-400); Red Blood Count 3.59 MC/CUMM (3.8-5.5); Red Cell Distribution Width 15.9 % (9.3-17.3); White Blood Count 8.9 T/CUMM (4-12)
[2019-02-06 06:22] LABS: Calcium 8.7 MG/DL (8.5-10.1); Osmolality,Calculated 271.8 MOS/KG (273-304)
[2019-02-06 06:38] LABS: Anisocytosis 1+; Lymphocytes 700 % (20-55); Segmented Neutrophils 8700 % (50-85); Total Cells Counted 10000
[2019-02-06 06:39] LABS: Hypochromasia Slight; Microcytosis Slight; Platelet Estimate Adequate
[2019-02-06] MEDS: MONTELUKAST 10 MG TABLET PO SCH (08:12)
[2019-02-06] MEDS: MAGNESIUM CHLORIDE 64 MG TABLET PO SCH ×2 (08:12→20:14)
[2019-02-06] MEDS: OMEGA 3 ACID ETHYL ESTERS 1 GM CAPSULE PO SCH ×2 (08:12→20:14)
[2019-02-06] MEDS: DICYCLOMINE 10 MG CAPSULE PO SCH ×3 (08:12→20:14)
[2019-02-06] MEDS: ASPIRIN CHEW 81 MG TABLET PO SCH (08:13)
[2019-02-06] MEDS: FUROSEMIDE 40 MG TABLET PO SCH ×2 (08:13→15:32)
[2019-02-06] MEDS: FLUTICASONE/SALMETEROL 500-50 DISKUS 14 DOSE INH SCH (08:13)
[2019-02-06] MEDS: LEVOFLOXACIN INJ 500 MG in PREMIX 1 EACH IV SCH (23:42)
[2019-02-07] MEDS: ALBUTEROL/IPRATROPIUM 3 ML NEB RESP TX SCH ×2 (00:23→07:56)
[2019-02-07] MEDS: metroNIDAZOLE INJ 500 MG in PREMIX 1 EACH IV SCH ×2 (03:41→09:57)
[2019-02-07] MEDS: LEVOTHYROXINE 50 MCG TABLET PO SCH (06:01)
[2019-02-07] MEDS: ASPIRIN CHEW 81 MG TABLET PO SCH (08:37)
[2019-02-07] MEDS: MONTELUKAST 10 MG TABLET PO SCH (08:37)
[2019-02-07] MEDS: DICYCLOMINE 10 MG CAPSULE PO SCH (08:37)
[2019-02-07] MEDS: OMEGA 3 ACID ETHYL ESTERS 1 GM CAPSULE PO SCH (08:37)
[2019-02-07] MEDS: FUROSEMIDE 40 MG TABLET PO SCH (08:37)
[2019-02-07] MEDS: MAGNESIUM CHLORIDE 64 MG TABLET PO SCH (08:37)
[2019-02-07] MEDS: FLUTICASONE/SALMETEROL 500-50 DISKUS 14 DOSE INH SCH (08:38)
[2019-02-07 10:06] VITALS: BP 95/74
== END 2019-02-07 13:11 | disposition home health service (06) | DRG 392 ==
LOC: N.ED 17:49 → N.EDINP 23:08 → SUATTDRO 23:08 → N.3E 23:38
PROVIDERS: ADMIT Internal Medicine; ATTEND Internal Medicine

== ENCOUNTER 2019-02-17 16:26 | Inpatient (IN) ==
[2019-02-17] MEDS ORDERED: PANTOPRAZOLE 40 MG VIAL IV STA (17:01)
[2019-02-17] MEDS ORDERED: SODIUM CHLORIDE 0.9% 1,000 ML IV STA (17:01)
[2019-02-17] MEDS ORDERED: ONDANSETRON 4 MG/2 ML VIAL IV STA (17:01)
[2019-02-17 18:57] LABS: Basophils % 0.3 % (0.0-0.8); Eosinophils % 0.3 % (0.00-10.9); Hemoglobin 11.6 GM/DL (12.0-16.0); Immature Granulocytes % 1.2 %; Immature Granulocytes Absolute 0.12 #; Lymphocytes # 0.3 10*3/uL (1.4-4.0); Lymphocytes % 3.2 % (21.3-54.2); Mean Corpuscular HGB Conc 30.5 GM/DL (32-36); Mean Corpuscular Volume 95.5 FL (87-102); Mean Platelet Volume 10.3 FL (9.6-12.0); Monocytes % 4.9 % (1.7-12.7); NRBC # 0.08 10*3/uL; Neutrophils % 90.1 % (38.7-73.9); Platelet Count 348 T/CUMM (130-400); Red Blood Count 3.98 MC/CUMM (3.8-5.5); Red Cell Distribution Width 18.6 % (9.3-17.3); White Blood Count 9.9 T/CUMM (4-12)
[2019-02-17] MEDS: SODIUM CHLORIDE 0.9% 1,000 ML IV SCH ×2 (19:00→22:42)
[2019-02-17 19:20] LABS: Anisocytosis 1+; Lymphocytes 4 % (20-55); Segmented Neutrophils 91 % (50-85)
[2019-02-17 19:21] LABS: Platelet Estimate Adequate; Polychromasia Few; Total Cells Counted 100
[2019-02-17 19:27] LABS: Alanine Aminotransferase 12 U/L (13-56); Albumin 2.5 G/DL (3.4-5.0); Alkaline Phosphatase 113 U/L (45-117); Amylase 43 U/L (25-115); Aspartate Amino Transferase 26 U/L (0-37); Blood Urea Nitrogen 26 MG/DL (7-18); Calcium 8.9 MG/DL (8.5-10.1); Glucose 121 MG/DL (74-106); Total Protein 8.1 G/DL (6.4-8.3)
[2019-02-17] MEDS ORDERED: ONDANSETRON 4 MG/2 ML VIAL IV PRN (20:40)
[2019-02-17] MEDS ORDERED: DOCUSATE SODIUM 100 MG CAPSULE PO PRN (20:40)
[2019-02-17] MEDS ORDERED: ACETAMINOPHEN 325 MG TABLET PO PRN (20:40)
[2019-02-17] MEDS ORDERED: traZODone 50 MG TABLET PO PRN (20:40)
[2019-02-17] MEDS ORDERED: POLYVINYL ALCOHOL 1.4% OPH SOLN 15 ML BOTTLE BOTH EYES PRN (20:48)
[2019-02-17] MEDS: metroNIDAZOLE 500 MG TABLET PO SCH (23:46)
[2019-02-17] MEDS: DICYCLOMINE 10 MG CAPSULE PO SCH (23:46)
[2019-02-17] MEDS: ENOXAPARIN 40 MG/0.4 ML SYRINGE SUBCUT SCH (23:46)
[2019-02-18 04:38] LABS: Amorphous Crystals,Urine Occasional /HPF (Few); Apearance,Urine CLOUDY (Clear); Bacteria,Urine Occasional /HPF (Few); Bilirubin,Urine Negative (Negative); Blood, Urine Negative (Negative); Glucose,Urine (UA) Negative (Negative); Hyaline Casts,Urine 25 /LPF (0-3); Ketones,Urine 5 mg/dL (Negative); Mucus,Urine Few /LPF (Occasional); Nitrite,Urine Negative (Negative); Protein,Urine 30 MG/DL; RBC,Urine 17 /HPF (0-4); Squamous Epithelial Cell,Urine Few /HPF (0-10); Urine Specific Gravity 1.024 (1.001-1.035); Urine Urobilinogen < 2.0 EU/DL (0.2-1.0); WBC,Urine 50 /HPF (0-6)
[2019-02-18 04:42] LABS: Urine Color Yellow (Yellow)
[2019-02-18] MEDS: LEVOTHYROXINE 50 MCG TABLET PO SCH (05:46)
[2019-02-18] MEDS: SODIUM CHLORIDE 0.9% 1,000 ML IV SCH (09:25)
[2019-02-18] MEDS: LEVOFLOXACIN 500 MG TABLET PO SCH (09:59)
[2019-02-18] MEDS: metroNIDAZOLE 500 MG TABLET PO SCH ×3 (09:59→22:30)
[2019-02-18] MEDS: DICYCLOMINE 10 MG CAPSULE PO SCH ×3 (09:59→22:30)
[2019-02-18] MEDS: MONTELUKAST 10 MG TABLET PO SCH (09:59)
[2019-02-18] MEDS: KETOROLAC 15 MG/1 ML VIAL IV PRN ×2 (10:00→17:56)
[2019-02-18] MEDS: CLOPIDOGREL 75 MG TABLET PO SCH (10:00)
[2019-02-18] MEDS: PANTOPRAZOLE 40 MG TABLET PO SCH (10:00)
[2019-02-18] MEDS: ASPIRIN CHEW 81 MG TABLET PO SCH (10:00)
[2019-02-18] MEDS ORDERED: FUROSEMIDE 40 MG/4 ML VIAL IV ONE (15:54)
[2019-02-18] MEDS: CHOLESTYRAMINE 4 GM PACK PO SCH (16:48)
[2019-02-18] MEDS: ENOXAPARIN 40 MG/0.4 ML SYRINGE SUBCUT SCH (22:30)
[2019-02-19] MEDS: KETOROLAC 15 MG/1 ML VIAL IV PRN ×2 (03:53→08:42)
[2019-02-19] MEDS: SODIUM CHLORIDE 0.9% 1,000 ML IV SCH (05:02)
[2019-02-19 05:26] LABS: Calcium 8.1 MG/DL (8.5-10.1); Osmolality,Calculated 280.1 MOS/KG (273-304)
[2019-02-19] MEDS: LEVOTHYROXINE 50 MCG TABLET PO SCH (06:11)
[2019-02-19] MEDS: MONTELUKAST 10 MG TABLET PO SCH (10:53)
[2019-02-19] MEDS: metroNIDAZOLE 500 MG TABLET PO SCH ×3 (10:53→20:53)
[2019-02-19] MEDS: LEVOFLOXACIN 500 MG TABLET PO SCH (10:53)
[2019-02-19] MEDS: PANTOPRAZOLE 40 MG TABLET PO SCH (10:54)
[2019-02-19] MEDS: DICYCLOMINE 10 MG CAPSULE PO SCH ×3 (10:54→20:53)
[2019-02-19] MEDS: ASPIRIN CHEW 81 MG TABLET PO SCH (10:54)
[2019-02-19] MEDS: CLOPIDOGREL 75 MG TABLET PO SCH (10:54)
[2019-02-19] MEDS: CHOLESTYRAMINE 4 GM PACK PO SCH (10:54)
[2019-02-19] MEDS ORDERED: TUBERCULIN SKIN TEST 0.1 ML SYRINGE INTRADERM ONE (15:53)
[2019-02-19] MEDS: ENOXAPARIN 40 MG/0.4 ML SYRINGE SUBCUT SCH (20:59)
[2019-02-19] MEDS ORDERED: MIDODRINE 2.5 MG TABLET PO SCH (21:00)
[2019-02-19] MEDS ORDERED: MIRTAZAPINE 15 MG TABLET PO SCH (21:00)
[2019-02-20] MEDS: KETOROLAC 15 MG/1 ML VIAL IV PRN (03:14)
[2019-02-20] MEDS: LEVOTHYROXINE 50 MCG TABLET PO SCH (05:58)
[2019-02-20 06:48] LABS: Basophils % 0.1 % (0.0-0.8); Eosinophils # 0.1 10*3/uL (0.0-0.87); Eosinophils % 0.9 % (0.00-10.9); Hematocrit 35.6 VOL% (35.7-47.0); Hemoglobin 11.2 GM/DL (12.0-16.0); Immature Granulocytes % 0.8 %; Immature Granulocytes Absolute 0.07 #; Lymphocytes # 0.7 10*3/uL (1.4-4.0); Lymphocytes % 8.4 % (21.3-54.2); Mean Corpuscular HGB Conc 31.5 GM/DL (32-36); Mean Corpuscular Volume 93.4 FL (87-102); Mean Platelet Volume 10.5 FL (9.6-12.0); Monocytes % 7.2 % (1.7-12.7); NRBC # 0.06 10*3/uL; Neutrophils % 82.6 % (38.7-73.9); Platelet Count 427 T/CUMM (130-400); Red Blood Count 3.81 MC/CUMM (3.8-5.5); White Blood Count 8.9 T/CUMM (4-12)
[2019-02-20 07:07] LABS: Calcium 8.6 MG/DL (8.5-10.1); Osmolality,Calculated 273.7 MOS/KG (273-304)
[2019-02-20] MEDS: metroNIDAZOLE 500 MG TABLET PO SCH ×3 (09:39→20:56)
[2019-02-20] MEDS: CLOPIDOGREL 75 MG TABLET PO SCH (09:39)
[2019-02-20] MEDS: LEVOFLOXACIN 500 MG TABLET PO SCH (09:39)
[2019-02-20] MEDS: MONTELUKAST 10 MG TABLET PO SCH (09:39)
[2019-02-20] MEDS: DICYCLOMINE 10 MG CAPSULE PO SCH ×3 (09:39→20:57)
[2019-02-20] MEDS: CHOLESTYRAMINE 4 GM PACK PO SCH ×2 (09:39→20:57)
[2019-02-20] MEDS: ASPIRIN CHEW 81 MG TABLET PO SCH (09:39)
[2019-02-20] MEDS: PANTOPRAZOLE 40 MG TABLET PO SCH (09:39)
[2019-02-20] MEDS ORDERED: SODIUM BICARB INJ 50 MEQ in DEXTROSE 5% NACL 0.9% 1,000 ML IV SCH (11:00)
[2019-02-20] MEDS: SODIUM BICARB INJ 50 MEQ in DEXTROSE 5% NACL 0.45% 1,000 ML IV SCH (12:18)
[2019-02-20] MEDS ORDERED: HYDROmorphone 2 MG/1 ML VIAL IV PRN (15:28)
[2019-02-20] MEDS: LIDOCAINE 5% PATCH TRANSDERM SCH ×2 (15:48→21:16)
[2019-02-20] MEDS: MIRTAZAPINE 15 MG TABLET PO SCH (20:57)
[2019-02-20] MEDS: ENOXAPARIN 40 MG/0.4 ML SYRINGE SUBCUT SCH (20:57)
[2019-02-21] MEDS: SODIUM BICARB INJ 50 MEQ in DEXTROSE 5% NACL 0.45% 1,000 ML IV SCH (06:15)
[2019-02-21 07:05] LABS: Basophils % 0.1 % (0.0-0.8); Eosinophils % 0.1 % (0.00-10.9); Hematocrit 33.4 VOL% (35.7-47.0); Hemoglobin 10.3 GM/DL (12.0-16.0); Immature Granulocytes % 0.8 %; Immature Granulocytes Absolute 0.07 #; Lymphocytes # 0.6 10*3/uL (1.4-4.0); Lymphocytes % 7.3 % (21.3-54.2); Mean Corpuscular HGB Conc 30.8 GM/DL (32-36); Mean Corpuscular Volume 94.9 FL (87-102); Mean Platelet Volume 10.6 FL (9.6-12.0); Monocytes % 8.2 % (1.7-12.7); NRBC # 0.07 10*3/uL; Neutrophils % 83.5 % (38.7-73.9); Platelet Count 355 T/CUMM (130-400); Red Blood Count 3.52 MC/CUMM (3.8-5.5); White Blood Count 8.3 T/CUMM (4-12)
[2019-02-21] MEDS: LEVOTHYROXINE 50 MCG TABLET PO SCH (07:33)
[2019-02-21] MEDS ORDERED: LEVOFLOXACIN 250 MG TABLET PO SCH (09:00)
[2019-02-21 09:08] LABS: Calcium 8.1 MG/DL (8.5-10.1); Osmolality,Calculated 277.9 MOS/KG (273-304)
[2019-02-21] MEDS ORDERED: SODIUM POLYSTYRENE SULFATE 15 GM/60 ML BOTTLE PO ONE (09:12)
[2019-02-21] MEDS: DICYCLOMINE 10 MG CAPSULE PO SCH (09:14)
[2019-02-21] MEDS: metroNIDAZOLE 500 MG TABLET PO SCH (09:15)
[2019-02-21] MEDS: MONTELUKAST 10 MG TABLET PO SCH (09:15)
[2019-02-21] MEDS: ASPIRIN CHEW 81 MG TABLET PO SCH (09:15)
[2019-02-21] MEDS: CLOPIDOGREL 75 MG TABLET PO SCH (09:15)
[2019-02-21] MEDS: CHOLESTYRAMINE 4 GM PACK PO SCH (09:15)
[2019-02-21] MEDS: PANTOPRAZOLE 40 MG TABLET PO SCH (09:15)
[2019-02-21] MEDS: LIDOCAINE 5% PATCH TRANSDERM SCH ×2 (09:16→22:00)
[2019-02-21] MEDS ORDERED: SODIUM CHLORIDE 1 GM TABLET PO SCH (09:30)
[2019-02-21] MEDS ORDERED: SODIUM BICARB INJ 50 MEQ in DEXTROSE 5% NACL 0.9% 1,000 ML IV SCH (10:00)
[2019-02-21] MEDS ORDERED: HYDROmorphone 2 MG/1 ML VIAL IV PRN (10:26)
[2019-02-21] MEDS ORDERED: LORazepam 2 MG/1 ML VIAL IV PRN (10:27)
[2019-02-21] MEDS ORDERED: ACETAMINOPHEN 650 MG SUPP RECTAL PRN (10:28)
[2019-02-21 18:46] LABS: CDT Result Negative (Negative); CDT Specimen Source STOOL
[2019-02-21] MEDS: MIRTAZAPINE 15 MG TABLET PO SCH (20:33)
[2019-02-22] MEDS: LEVOTHYROXINE 50 MCG TABLET PO SCH (06:13)
[2019-02-22] MEDS ORDERED: HYDROmorphone 2 MG/1 ML VIAL IV PRN (08:38)
[2019-02-22] MEDS ORDERED: SODIUM CHLORIDE 0.9% 1,000 ML IV SCH (09:00)
[2019-02-22] MEDS: HYDROmorphone 2 MG/1 ML VIAL IV PRN ×2 (09:56→13:02)
[2019-02-22] MEDS: LIDOCAINE 5% PATCH TRANSDERM SCH (10:06)
[2019-02-22 14:17] VITALS: BP 64/43
== END 2019-02-22 14:03 | disposition expired | DRG 640 ==
LOC: EDUNIT# → EDBD → N.ED 16:26 → N.EDINP 20:40 → SUATTDRO 20:40 → N.EDINP 21:18 → N.5E 21:25
PROVIDERS: ADMIT Hospitalist; ATTEND Internal Medicine